=== PATIENT | female | born 1955 | race Caucasian/White ===

== ENCOUNTER 2022-10-29 11:29 | Emergency (ER) | payer OTHER ==
[~2022-10-29] VITALS: Ht 154.9 cm; Wt 86.2 kg
--- NOTE | 2022-10-29 11:38 | NUR ---
Patient to ER bed 8 to gown for evaluation. Side rails up. Report given to KARLA ORTIZ.
[2022-10-29 11:46] VITALS: BP_SYST 141
[2022-10-29] MEDS ORDERED: KETOROLAC TROMETHAMINE 30 MG VIAL IVP ONE (12:15)
--- NOTE | 2022-10-29 12:35 | NUR ---
pt presents to ED byself is waiting in the car. pt c/o lower abd pain and black tarry loose stool started yesterday. pt states she believes she is having a diverticulitis flare up. pt in nad, even unlabored respirations vss. will continue to monitor and medicate according to Dr orders.
[2022-10-29 12:38] VITALS: BP_SYST 133
[2022-10-29] MEDS ORDERED: PSYL0.4C2 PO (12:38)
[2022-10-29] MEDS ORDERED: INSU100V9 SQ (12:38)
[2022-10-29] MEDS ORDERED: ONDA-8 TL (12:38)
[2022-10-29] MEDS ORDERED: CIPR500T5 PO (12:40)
[2022-10-29] MEDS ORDERED: DOCU-144 PO (12:40)
--- NOTE | 2022-10-29 12:40 | NUR ---
pt to ct
[2022-10-29] MEDS ORDERED: LIP40 PO (12:42)
[2022-10-29] MEDS ORDERED: LEVO125T PO (12:42)
[2022-10-29] MEDS ORDERED: NEU300 PO (12:43)
[2022-10-29 12:46] LABS: BASOPHILS % (AUTO) 0.4 % (0.0-2.0); EOSINOPHILS # (AUTO) 0.2 K/uL (0.0-0.4); EOSINOPHILS % (AUTO) 1.3 % (0.0-4.0); HEMATOCRIT 43.3 % (36-48); HEMOGLOBIN 14.3 g/dL (12.0-16.0); LYMPHOCYTES # (AUTO) 2.1 K/uL (1.0-5.5); LYMPHOCYTES % (AUTO) 15.4 % (20.5-51.5); MEAN CORPUSCULAR HEMOGLOBIN 27 pg (27-31); MEAN CORPUSCULAR HGB CONC 33 % (32-36); MEAN CORPUSCULAR VOLUME 81 fL (79.0-98.0); NEUTROPHILS # (AUTO) 10.3 K/uL (1.8-7.7); NEUTROPHILS % (AUTO) 75.9 % (40.0-70.0); PLATELET COUNT (AUTO) 253 K/uL (130-430); RED BLOOD CELL COUNT(AUTO) 5.36 MIL/uL (4.2-6.2); RED CELL DISTRIBUTION WIDTH 21.7 % (9.0-15.0); WHITE BLOOD COUNT (AUTO) 13.6 K/uL (4.8-10.8)
[2022-10-29] MEDS ORDERED: IBUP-1969 PO (12:46)
[2022-10-29] MEDS ORDERED: INSU100V SQ (12:46)
--- NOTE | 2022-10-29 12:47 | NUR ---
pt back to er went to bathroom assissted.
[2022-10-29 12:54] LABS: CALCIUM 8.4 mg/dL (8.4-11.0); CREATININE 0.83 mg/dL (0.55-1.30)
[2022-10-29 12:59] LABS: ALBUMIN 3.2 g/dL (3.4-4.8); TOTAL BILIRUBIN 1.1 mg/dL (0.0-1.0)
[2022-10-29] MEDS ORDERED: METR-154 PO (13:54)
[2022-10-29] MEDS ORDERED: TRAM50TA2 PO (13:54)
--- NOTE | 2022-10-29 16:41 | NUR ---
Patient given written and verbal discharge instructions and verbalizes understanding. ER MD discussed with patient the results and treatment provided. Patient in stable condition. ID arm band removed. IV catheter removed intact and dressing applied, no active bleeding. Rx of given. Patient educated on pain management and to follow up with PMD. Pain Scale . Opportunity for questions provided and answered. Medication side effect fact sheet provided.
== END 2022-10-29 16:41 | disposition home or self-care (01) ==
LOC: SED 11:29
DX: K57.92 Diverticulitis of intestine, part unspecified, without perforation or abscess without bleeding (principal); R10.32 Left lower quadrant pain; R19.7 Diarrhea, unspecified; R11.10 Vomiting, unspecified; Z79.4 Long term (current) use of insulin; Z79.899 Other long term (current) drug therapy
CPT/HCPCS: 99284; 74176; 80053; 83690; 85025; 36415; 76376; J1885